=== PATIENT | male | born 2000 | race Hispanic/Latino ===

== ENCOUNTER 2019-07-11 15:29 | Inpatient (IN) | payer BC, MEDICAID ==
[~2019-07-11] VITALS: Ht 165.1 cm; Wt 71.8 kg
[~2019-07-11 15:29] MED LIST: BACTRIM DS1 TAB PO; KEFLEX500 MG PO; METFORMIN500 MG PO; TRESIBA FL100 UNIT/M SC
--- NOTE | 2019-07-11 15:35 | NUR ---
PT TO ROOM VIA EMS. PT SENT TO ER BY [facility] FOR ELEVATED BLOOD SUGAR. PT STATES HAVING A HEADACHE. DENIES ANY N/V/D, C/P, SOB OR WEAKNESS. PT IS AOX4.
[2019-07-11 16:00] LABS: HEMATOCRIT 45.9 % (39.0-50.0); HEMOGLOBIN 15.2 g/dl (14.0-18.0); IMMATURE GRANULOCYTES 0.3 % (0.0-5.0); MEAN CELL VOLUME 81.2 fL CALC (80.0-100.0); MEAN CORPUSCULAR HGB 26.9 pG CALC (26.0-32.0); MEAN CORPUSCULAR HGB CONC 33.1 g/L CALC (32.0-36.0); NEUT# 3.8 thou/uL (1.82-7.42); RED BLOOD COUNT 5.65 mill/uL (4.70-6.10); RED CELL DISTRI WIDTH 12.5 % (11.5-15.5)
[2019-07-11 16:16] LABS: ALBUMIN 4.5 g/dL (3.2-5.0); ALKALINE PHOSPHATASE 86 u/l (38-126); ANION GAP 16 (6-22 (CALC)); BILIRUBIN, TOTAL 0.5 mg/dL (0.0-1.4); BUN 15 mg/dL (9-20); BUN/CREATININE RATIO 21 (12-20 (CALC)); CARBON DIOXIDE 25 mmol/l (22-30); CHLORIDE 98 mmol/l (95-108); CREATININE 0.7 mg/dL (0.7-1.3); GFR > 60 ML/MIN (>=60 (CALC)); GFR FOR AFR.AMER. > 60 ML/MIN (>=60 (CALC)); LIPASE 107 u/l (23-300); SGOT/AST 23 u/l (17-59); SODIUM 133 mmol/l (137-146); TOTAL PROTEIN 7.5 g/dL (6.3-8.2)
[2019-07-11 16:25] LABS: POTASSIUM 5.6 mmol/l (3.5-5.1)
[2019-07-11 17:03] LABS: URINE BILIRUBIN - DIPSTICK NEGATIVE (NEGATIVE); URINE BLOOD DIPSTICK NEGATIVE (NEGATIVE); URINE COLOR YELLOW; URINE GLUCOSE - DIPSTICK >=1000 mg/dL (NEGATIVE); URINE KETONE NEGATIVE (NEGATIVE); URINE LEUK ESTERASE NEGATIVE (NEGATIVE); URINE NITRITE - DIPSTICK NEGATIVE (Negative); URINE PH 5.5 (4.5-8.0); URINE PROTEIN - DIPSTICK NEGATIVE (NEG-TRACE); URINE UROBILINOGEN - DIPSTICK 0.2 E.U./dL (0.2)
--- NOTE | 2019-07-11 17:57 | NUR ---
TELEBOX 2614 IN USE
--- NOTE | 2019-07-11 18:02 | NUR ---
Admission Note Report Given to: KATY VALENTINE Transported by: Wheelchair X Stretcher Transported with: X Nurse Transporter X Patent IV O2 X Wet Room Worker
--- NOTE | 2019-07-11 18:09 | NUR ---
PT REMAINS IN ED AT THIS TIME. PER TWYLA, ED JORGE/[facility] SEEN INTERMITTENTLY. LEADS CHANGED. NO OTHER BOX AVAILABLE AT THIS TIME. REQUESTED TO HOLD PT IN ED UNTIL ISSUE RESOLVED. PT PLACED ON ED BEDSIDE MONITOR
--- NOTE | 2019-07-11 18:41 | NUR ---
TELEBOX 0781 IN USE
--- NOTE | 2019-07-11 18:47 | NUR ---
PT CAME VIA STRETCHER FROM ER. PT AMBULATED TO SCALE AND THEN TO BED. IVF INFUSING WELL. INSURANCE BILLING SPECIALIST IN ROOM TO OBTAIN VS. CALL LIGHT IN REACH.
[2019-07-11 18:50] VITALS: BP 115/86
[2019-07-11] MEDS ORDERED: CEPHALEXIN500 M1 PO (19:02)
[2019-07-11 20:22] LABS: BUN 13 mg/dL (9-20); BUN/CREATININE RATIO 20 (12-20 (CALC)); CARBON DIOXIDE 26 mmol/l (22-30); CHLORIDE 105 mmol/l (95-108); CREATININE 0.7 mg/dL (0.7-1.3); GFR > 60 ML/MIN (>=60 (CALC)); GFR FOR AFR.AMER. > 60 ML/MIN (>=60 (CALC)); SODIUM 139 mmol/l (137-146)
[2019-07-11 20:24] LABS: ANION GAP 12 (6-22 (CALC)); POTASSIUM 3.7 mmol/l (3.5-5.1)
--- NOTE | 2019-07-11 21:35 | NUR ---
PT RESTING IN BED, ALERT AND ORIENTED. ASSESSMENT COMPLETED. RESPIRATIONS EVEN AND UNLABORED ON RA. LUNGS SOUND CLEAR. PEDAL PULSES ARE STRONG. PT DENIES ANY PAIN OR DISCOMFORT AT THIS TIME. #20 LAC APPEARS HEALTHY AND PATENT. TELE IN PLACE. PT ORIENTED TO ROOM AND CALL HOUSE SYSTEM. PT ENCOURAGED TO USE CALL HOUSE IF ANY NEEDS SHOULD ARISE. WILL CONTINUE TO MONITOR
[2019-07-11 23:57] VITALS: BP 148/70
--- NOTE | 2019-07-12 | NUR ---
PT RESTING IN BED. NO S/S OF DISTRESS AT THIS TIME. SAFETY PRECAUTIONS IN PLACE. WILL CONTINUE TO MONITOR.
--- NOTE | 2019-07-12 04:24 | NUR ---
PT RESTING IN BED. RESPIRATIONS EVEN AND UNLABORED ON RA. NO S/S OF DISTRESS AT THIS TIME. WILL CONTINUE TO MONITOR.
[2019-07-12 04:30] VITALS: BP 116/68
[2019-07-12 05:31] LABS: ANION GAP 10 (6-22 (CALC)); BUN 11 mg/dL (9-20); BUN/CREATININE RATIO 16 (12-20 (CALC)); CARBON DIOXIDE 27 mmol/l (22-30); CHLORIDE 105 mmol/l (95-108); CREATININE 0.7 mg/dL (0.7-1.3); GFR > 60 ML/MIN (>=60 (CALC)); GFR FOR AFR.AMER. > 60 ML/MIN (>=60 (CALC)); POTASSIUM 4.3 mmol/l (3.5-5.1); SODIUM 137 mmol/l (137-146)
[2019-07-12 07:30] VITALS: BP 120/49
--- NOTE | 2019-07-12 07:30 | NUR ---
PT RESTING IN BED WITH EYES CLOSED. AROUSES TO VERBAL STIMULI. PT IS ALERT AND ORIENTED X3. SHIFT ASSESSMENT COMPLETED AT THIS TIME. IV PATENT X1. CALL LIGHT IN REACH. WILL CONTINUE TO MONITOR.
[2019-07-12 11:05] VITALS: BP 130/72
--- NOTE | 2019-07-12 12:00 | NUR ---
PT SITTING UP IN BED. RESP ARE EVEN AND UNLABORED NO DISTRESS NOTED. CALL LIGHT IN REACH. WILL CONTINUE TO MONITOR
[2019-07-12 13:19] LABS: CHOLESTEROL HDL RATIO 3.3 (<4.4 (CALC)); MAGNESIUM 1.9 mg/dL (1.6-2.3)
--- NOTE | 2019-07-12 16:00 | NUR ---
PT RESTING IN BED WATCHING TV. RESP ARE EVEN AND UNLABORED. NO DISTRESS NOTED. CALL LIGHT IN REACH. WILL CONTINUE OT MONITOR
[2019-07-12 16:10] VITALS: BP 141/68
--- NOTE | 2019-07-12 18:10 | NUR ---
REPORT RECEIVED FROM KATY JORDAN. PT RESTING IN BED. NO S/S OF DISTRESS AT THIS TIME. SAFETY PRECAUTIONS IN PLACE. WILL CONTINUE TO MONITOR.
[2019-07-12 20:10] VITALS: BP 135/75
--- NOTE | 2019-07-12 21:45 | NUR ---
PT RESTING IN BED ALERT AND ORIENTED. RESPIRATIONS EVEN AND UNLABORED ON RA, LUNG SOUND CLEAR. PEDAL PULSES STRONG. PT DENIES ANYT PAIN OR DISCOMFORT AT THIE TIME. SAFETY PRECAUTIONS IN PLACE. WILL CONTINUE TO MONITOR.
--- NOTE | 2019-07-13 00:05 | NUR ---
PT RESTING IN BED. RESPIRATIONS EVEN AND UNLABORED ON RA. TELE IN PLACE. WILL CONTINUE TO MONITOR.
[2019-07-13 00:40] VITALS: BP 142/79
--- NOTE | 2019-07-13 04:20 | NUR ---
PT RESTING IN BED. RESPIRATIONS EVEN AND UNLABORED ON RA. TELE IN PLACE. WILL CONTINUE TO MONITOR.
[2019-07-13 04:54] LABS: HEMATOCRIT 46.9 % (39.0-50.0); HEMOGLOBIN 15.4 g/dl (14.0-18.0); IMMATURE GRANULOCYTES 0.4 % (0.0-5.0); MEAN CELL VOLUME 81.7 fL CALC (80.0-100.0); MEAN CORPUSCULAR HGB 26.8 pG CALC (26.0-32.0); MEAN CORPUSCULAR HGB CONC 32.8 g/L CALC (32.0-36.0); NEUT# 4.61 thou/uL (1.82-7.42); RED BLOOD COUNT 5.74 mill/uL (4.70-6.10); RED CELL DISTRI WIDTH 12.4 % (11.5-15.5)
[2019-07-13 05:38] LABS: ANION GAP 12 (6-22 (CALC)); BUN 11 mg/dL (9-20); BUN/CREATININE RATIO 16 (12-20 (CALC)); CARBON DIOXIDE 26 mmol/l (22-30); CHLORIDE 104 mmol/l (95-108); CREATININE 0.7 mg/dL (0.7-1.3); GFR > 60 ML/MIN (>=60 (CALC)); GFR FOR AFR.AMER. > 60 ML/MIN (>=60 (CALC)); POTASSIUM 4.2 mmol/l (3.5-5.1); SODIUM 138 mmol/l (137-146)
--- NOTE | 2019-07-13 07:00 | NUR ---
SHIFT CHANGE REPORT, PT SLEEPING, BREATHING EVEN AND NON-LABORED, AWAKENED TO VERBAL STIMULI, ORIENTED, NO C/O DISCOMFORT, CALL HOUSE IN REACH.
[2019-07-13 07:59] VITALS: BP 129/68
[2019-07-13 11:01] VITALS: BP 124/76
--- NOTE | 2019-07-13 11:55 | NUR ---
ALL NEEDS MET, RELAXING IN BED AND ENCOURAGED TO AMBULATE HALLWAYS.
[2019-07-13 15:16] VITALS: BP 125/65
--- NOTE | 2019-07-13 15:48 | NUR ---
RELAXING IN BED WAITING TO BE DISCHARGED, NO C/O DISCOMFORT.
--- NOTE | 2019-07-13 17:27 | NUR ---
TELE MONITOR REMOVED AFTER INFORMING TECH OF PLANS
--- NOTE | 2019-07-13 19:12 | NUR ---
Discharge instructions given. Patient verbalizes understanding of same. Discharged in stable condition via Ambulatory to Home with family. All belongings sent with pt.
== END 2019-07-13 19:12 | disposition home or self-care (01) | DRG 638 ==
LOC: ED 15:29 → ED-I 16:52 → ED 17:09 → MS2 17:10
PROVIDERS: Family Medicine; Nurse Practitioner Family; ADMIT Internal Medicine; ATTEND Internal Medicine
DX: E10.65 Type 1 diabetes mellitus with hyperglycemia (principal); E87.1 Hypo-osmolality and hyponatremia; E87.5 Hyperkalemia; E86.0 Dehydration; F32.9 Major depressive disorder, single episode, unspecified; F41.9 Anxiety disorder, unspecified; T38.3X6A Underdosing of insulin and oral hypoglycemic [antidiabetic] drugs, initial encounter; Z83.3 Family history of diabetes mellitus; Z79.4 Long term (current) use of insulin; Z91.120 Patient's intentional underdosing of medication regimen due to financial hardship

== ENCOUNTER 2019-10-02 | Emergency (ER) | payer BC, MEDICAID ==
[~2019-10-02] MED LIST changes: +CEPHALEXIN500 M1 PO
[2019-10-02] MEDS ORDERED: NOVOLOG FL100 UNIT/M (12:05)
[2019-10-02 12:54] LABS: HEMATOCRIT 44.6 % (39.0-50.0); HEMOGLOBIN 14.6 g/dl (14.0-18.0); IMMATURE GRANULOCYTES 0.4 % (0.0-5.0); MEAN CELL VOLUME 82.4 fL CALC (80.0-100.0); MEAN CORPUSCULAR HGB CONC 32.7 g/L CALC (32.0-36.0); NEUT# 3.07 thou/uL (1.82-7.42); RED BLOOD COUNT 5.41 mill/uL (4.70-6.10); RED CELL DISTRI WIDTH 12.6 % (11.5-15.5)
[2019-10-02 12:58] LABS: URINE BILIRUBIN - DIPSTICK NEGATIVE (NEGATIVE); URINE BLOOD DIPSTICK TRACE-INTACT (NEGATIVE); URINE COLOR YELLOW; URINE GLUCOSE - DIPSTICK >=1000 mg/dL (NEGATIVE); URINE KETONE NEGATIVE (NEGATIVE); URINE LEUK ESTERASE TRACE (NEGATIVE); URINE NITRITE - DIPSTICK NEGATIVE (Negative); URINE PH 5.5 (4.5-8.0); URINE PROTEIN - DIPSTICK NEGATIVE (NEG-TRACE); URINE UROBILINOGEN - DIPSTICK 0.2 E.U./dL (0.2)
[2019-10-02 13:09] LABS: ALBUMIN 4.3 g/dL (3.2-5.0); ALKALINE PHOSPHATASE 70 u/l (38-126); ANION GAP 14 (6-22 (CALC)); BILIRUBIN, TOTAL 0.4 mg/dL (0.0-1.4); BUN 13 mg/dL (9-20); BUN/CREATININE RATIO 17 (12-20 (CALC)); CARBON DIOXIDE 27 mmol/l (22-30); CHLORIDE 98 mmol/l (95-108); CREATININE 0.8 mg/dL (0.7-1.3); GFR > 60 ML/MIN (>=60 (CALC)); GFR FOR AFR.AMER. > 60 ML/MIN (>=60 (CALC)); POTASSIUM 4.4 mmol/l (3.5-5.1); SGOT/AST 33 u/l (17-59); SODIUM 134 mmol/l (137-146); TOTAL PROTEIN 7.4 g/dL (6.3-8.2)
== END 2019-10-02 14:45 | disposition home or self-care (01) | DRG 639 ==
PROVIDERS: Family Medicine
DX: E11.65 Type 2 diabetes mellitus with hyperglycemia (principal); Z79.4 Long term (current) use of insulin